=== PATIENT | male | born 1985 | race Caucasian/White ===

== ENCOUNTER → 2019-03-05 | Outpatient (CLI) | payer BC | END | disposition home or self-care (01) | LOC: LAB 12:48 → LAB SHORT 12:48 | DX: J02.9 Acute pharyngitis, unspecified (principal) | CPT/HCPCS: 87070 ==

== ENCOUNTER 2020-02-05 09:34 | Day surgery (SDC) | payer BC ==
[~2020-02-05] VITALS: Ht 177.8 cm; Wt 111.7 kg
[~2020-02-05 09:34] MED LIST: IBUP600 PO; Norco 5-325 Ta1 EACH PO; ONDA4ODT MM
== END 2020-02-05 23:01 | disposition home or self-care (01) ==
LOC: ORSCMMR 09:34 → ORD 11:00 → ORSCMMR 23:01
PROVIDERS: Podiatrist Foot & Ankle Surgery
PROC: 0MQR0ZZ Repair Left Ankle Bursa and Ligament, Open Approach (ICD-10-PCS; principal; 2020-02-05 11:00)
PROC: 0QSH04Z Reposition Left Tibia with Internal Fixation Device, Open Approach (ICD-10-PCS; principal; 2020-02-05 11:00)
PROC: 0QSK04Z Reposition Left Fibula with Internal Fixation Device, Open Approach (ICD-10-PCS; principal; 2020-02-05 11:00)
DX: S82.842A Displaced bimalleolar fracture of left lower leg, initial encounter for closed fracture (principal); S93.422A Sprain of deltoid ligament of left ankle, initial encounter
CPT/HCPCS: C1713; J0690; J1100; J2250; J2405; J2704; J3010; J7120